=== PATIENT | male | born 1960 | race Caucasian/White ===

== ENCOUNTER → 2016-09-03 | Outpatient (CLI) | payer MEDICARE, OTHER | LOC: KOH-I 10:49 | DX: M25.551 Pain in right hip (principal); M79.604 Pain in right leg | CPT/HCPCS: 73502; 73552 ==

== ENCOUNTER → 2020-09-09 | Outpatient (CLI) | payer MEDICARE, OTHER ==
[~2020-09-09] MED LIST: CEFUROXIME500 MG PO; ZOFRAN ODT 4 MG4 MG PO
== END ==
LOC: CT 09:27
DX: N20.0 Calculus of kidney (principal); K59.00 Constipation, unspecified

== ENCOUNTER 2020-10-11 12:22 | Emergency (ER) | payer MEDICARE, OTHER ==
[2020-10-11 14:04] LABS: HEMOGLOBIN 14.7 gm/dl (14.0-17.5); RED BLOOD COUNT 5.2 M/UL (4.20-5.50); WHITE BLOOD COUNT 11.7 K/UL (4.5-11.0)
[2020-10-11 14:41] LABS: BUN/CREATININE RATIO 24 (0-10)
== END 2020-10-11 23:48 | disposition short-term general hospital (02) ==
LOC: ER1 12:22
PROVIDERS: Physician Assistant
DX: N13.2 Hydronephrosis with renal and ureteral calculous obstruction (principal); N39.0 Urinary tract infection, site not specified
CPT/HCPCS: 71045; 80053; 81001; 82550; 82553; 83605; 83874; 84484; 85025; 87040; 87077; 87086; 87186; 93005; 99285; J0696